=== PATIENT | male | born 1930 | race Caucasian/White ===

== ENCOUNTER 2017-10-07 08:22 | Emergency (ER) | payer OTHER ==
[~2017-10-07] VITALS: Ht 165.1 cm; Wt 52.6 kg
--- NOTE | 2017-10-07 08:25 | NUR ---
RYAN Medina FROM [facility] C/O AGGRESSIVE BEHAVIOR, PT WAS HITTING THE STAFF. PATIENT IS CURRENTLY A/OX 1, BUT CALM AND COOPERATIVE. BREATHING EVEN AND UNLABORED. NO SOB, NAD. SAFETY AND COMFORT MEASURES IN PLACE. AWAITING MD ORDERS.
--- NOTE | 2017-10-07 08:56 | NUR ---
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
[2017-10-07 09:14] LABS: CALCIUM, SERUM 8.8 mg/dL (8.5-10.1); CARBON DIOXIDE 30 mmol/L (21-32); CHLORIDE 106 mmol/L (98-107); CREATININE 0.7 mg/dL (0.6-1.3); GLUCOSE 122 mg/dL (74-106); POTASSIUM 3.7 mmol/L (3.5-5.1); SODIUM SERUM 145 mmol/L (136-145); UREA NITROGEN, BLOOD 19 mg/dL (7-18)
[2017-10-07 09:20] LABS: ALANINE AMINOTRANSFERASE 23 U/L (12-78); ALBUMIN 3.7 g/dL (3.4-5.0); ALCOHOL, BLOOD < 3 mg/dL (0-0); ALKALINE PHOSPHATASE 78 U/L (46-116); ASPARTATE AMINOTRANSFERASE 23 U/L (15-37); BILIRUBIN,DIRECT 0.3 mg/dL (0.0-0.2); BILIRUBIN,TOTAL 1.5 mg/dL (0.2-1.0); TOTAL PROTEIN, SERUM 7.1 g/dL (6.4-8.2)
[2017-10-07 09:22] LABS: ACETAMINOPHEN 0 ug/ml (10-30); SALICYLATE < 0.2 mg/dL (2.8-20.0)
[2017-10-07 09:23] LABS: BASOPHILS % (AUTO) 0.2 % (0.0-2.0); EOSINOPHILS # (AUTO) 0.1 /CMM (0.0-0.7); HEMATOCRIT 34 % (39-51); HEMOGLOBIN 11.6 g/dL (13.5-17.5); LYMPHOCYTES # (AUTO) 0.7 /CMM (0.8-4.8); LYMPHOCYTES % (AUTO) 9.3 % (20.0-44.0); MEAN CORPUSCULAR HEMOGLOBIN 33 PG (26.0-33.0); MEAN CORPUSCULAR HGB CONC 34 g/dl (31.0-36.0); MEAN CORPUSCULAR VOLUME 97 fL (80-96); MONOCYTES # (AUTO) 0.6 /CMM (0.1-1.30); MONOCYTES % (AUTO) 8.1 % (2.0-12.0); NEUTROPHILS # (AUTO) 6.1 /CMM (1.8-8.9); NEUTROPHILS % (AUTO) 81.4 % (43.0-81.0); PLATELET COUNT (AUTO) 209 /CMM (150-450); RDW COEFFICIENT OF VARIATION 13.9 (11.5-15.0); RED BLOOD CELL COUNT(AUTO) 3.47 MIL/uL (4.5-6.0); WHITE BLOOD COUNT (AUTO) 7.5 K/uL (4.3-11.0)
--- NOTE | 2017-10-07 09:24 | NUR ---
[facility] CALLED [phone] VAIBHAV WILL CALL MD TO CALL US
[2017-10-07] MEDS ORDERED: QUET25TA PO (09:33)
[2017-10-07] MEDS ORDERED: ASPI-1169 PO (09:33)
[2017-10-07] MEDS ORDERED: LISI-603 PO (09:33)
[2017-10-07] MEDS ORDERED: ATOR40TA PO (09:33)
[2017-10-07] MEDS ORDERED: ALPR0.25 PO (09:33)
[2017-10-07] MEDS ORDERED: SERT25TA PO (09:33)
[2017-10-07] MEDS ORDERED: QUET50TA PO (09:33)
[2017-10-07] MEDS ORDERED: MELA3TAB PO (09:33)
[2017-10-07] MEDS ORDERED: TAMS-12 PO (09:33)
[2017-10-07] MEDS ORDERED: SENN-167 PO (09:33)
[2017-10-07] MEDS ORDERED: CARB-93 PO (09:33)
[2017-10-07] MEDS ORDERED: METO25TA20 PO (09:33)
--- NOTE | 2017-10-07 10:00 | NUR ---
URINE OBTAINED AND SENT TO LAB.
--- NOTE | 2017-10-07 10:04 | NUR ---
CALLED [facility] [phone] BOYER
[2017-10-07 10:07] LABS: APPEARANCE,URINE Clear (CLEAR); BILIRUBIN,URINE MODERATE (NEGATIVE); BLOOD, URINE Moderate Ery/uL (NEGATIVE); KETONES,URINE 40 (NEGATIVE); LEUKOCYTE ESTERASE ,URINE Trace (NEGATIVE); NITRITE, URINE Negative (NEGATIVE); PH,URINE 5.5 (5.0-8.0); PROTEIN,URINE 30 mg/dl (NEGATIVE); UGLUCOSE Negative (NEGATIVE)
[2017-10-07 10:11] LABS: COLOR,URINE DARK YELLOW (YELLOW)
[2017-10-07 10:31] LABS: BACTERIA,URINE None seen /HPF (None Seen); MUCUS,URINE Few /LPF (None Seen); SQUAMOUS EPITHELIAL CELL,UR Few /HPF (None Seen); WBC,URINE 0-3 /HPF (0-3)
--- NOTE | 2017-10-07 10:53 | NUR ---
[facility] CALLING BACK WITH GAYATHRI SHEPPARD IN [facility] DR. PEARSON CALL FOR REPORT [phone] WILL BE HERE BY 1200
--- NOTE | 2017-10-07 11:13 | NUR ---
REPORT GIVEN TO ANGELA PATEL AT [facility] FOR [facility] UPON TRANSFER.
[2017-10-07 12:10] VITALS: BP 168/85
--- NOTE | 2017-10-07 12:16 | NUR ---
REPORT GIVEN TO EMT AT BEDSIDE. TRANSFER INSTRUCTIONS PROVIDED, PATIENT STABLE FOR TRANSFER, LEFT VIA AMBULANCE TO [facility].
== END 2017-10-07 12:15 | disposition short-term general hospital (02) ==
LOC: ER 08:24
DX: F79 Unspecified intellectual disabilities (principal); F91.8 Other conduct disorders; G20 Parkinson's disease; I10 Essential (primary) hypertension; Z79.82 Long term (current) use of aspirin; Z88.0 Allergy status to penicillin; Z88.6 Allergy status to analgesic agent
CPT/HCPCS: 36415; 80048; 80076; 80305; 80329; 81001; 85025; 93005; 99285; A4606; G0480 ×2; 81000-TC; Z7610